=== PATIENT | male | born 1995 | race Caucasian/White ===

== ENCOUNTER 2019-03-31 10:26 | Inpatient (IN) | payer MEDICAID ==
[~2019-03-31] VITALS: Ht 170.2 cm; Wt 79.7 kg
[2019-03-31] MEDS ORDERED: OLAN2.5T3 PO (10:31)
[2019-03-31] MEDS ORDERED: BENZ0.5T44 PO (10:31)
[2019-03-31 11:11] LABS: APPEARANCE,URINE CLEAR (CLEAR); BILIRUBIN,URINE NEGATIVE (NEGATIVE); GLUCOSE, URINE (UA) NEGATIVE (NEGATIVE); KETONES,URINE NEGATIVE (NEGATIVE); LEUKOCYTE ESTERASE ,URINE NEGATIVE (NEGATIVE); NITRATE,URINE NEGATIVE (NEGATIVE); OCCULT BLOOD,URINE NEGATIVE (NEGATIVE); PH,URINE 6.5 (5.0-8.0); PROTEIN,URINE NEGATIVE (NEGATIVE); UROBILINOGEN,URINE 0.2 mg/dL (<=1.0)
[2019-03-31 11:17] LABS: AMPHET/METH SCREEN,URINE NEGATIVE (NEGATIVE); BARBITURATE SCREEN, URINE NEGATIVE (NEGATIVE); BENZODIAZEPINES SCREEN,URINE NEGATIVE (NEGATIVE); CANNABINOID SCREEN,URINE POSITIVE (NEGATIVE); COCAINE SCREEN,URINE NEGATIVE (NEGATIVE); METHADONE SCREEN, URINE NEGATIVE (NEGATIVE); OPIATE SCREEN,URINE NEGATIVE (NEGATIVE)
[2019-03-31 11:18] LABS: PHENCYCLIDINE SCREEN,URINE NEGATIVE (NEGATIVE)
[2019-03-31 12:28] LABS: BASOPHILS % (AUTO) 0.3 % (0.0-2.0); HEMOGLOBIN 13.8 g/dL (13.5-17.5); LYMPHOCYTES # (AUTO) 1.4 K/uL (1.0-4.8); LYMPHOCYTES % (AUTO) 25.8 % (22.0-44.0); MEAN CORPUSCULAR HEMOGLOBIN 29.3 pg (26.0-34.0); MEAN CORPUSCULAR HGB CONC 33.8 G/dL (31.0-37.0); MEAN CORPUSCULAR VOLUME 87 fL (80-100); MONOCYTES # (AUTO) 0.4 K/uL (0.1-1.0); MONOCYTES % (AUTO) 8.1 % (2.0-9.0); NEUTROPHILS # (AUTO) 3.4 K/uL (1.8-7.7); NEUTROPHILS % (AUTO) 64.8 % (40.0-70.0); PLATELET COUNT (AUTO) 200 K/uL (150-450); RED BLOOD CELL COUNT(AUTO) 4.72 MIL/uL (4.50-5.90); RED CELL DISTRIBUTION WIDTH 14.4 % (11.5-14.5)
[2019-03-31] MEDS ORDERED: 0.9% SODIUM CHLORIDE 10 ML SYRINGE IVP PRN (12:30)
[2019-03-31] MEDS ORDERED: ONDANSETRON HCL 4 MG/2 ML VIAL IVP PRN (12:30)
[2019-03-31] MEDS ORDERED: ACETAMINOPHEN 325 MG TABLET PO PRN (12:30)
[2019-03-31 12:36] LABS: ANION GAP 7 mmol/L (8-16); CARBON DIOXIDE 27 mmol/L (22-29); CHLORIDE 105 mmol/L (98-107); CREATININE 0.83 mg/dL (0.60-1.30); GLOMERULAR FILTR. RATE CALC > 60 mL/min (>60); GLUCOSE,RANDOM 106 mg/dL (70-110); POTASSIUM 4.1 mmol/L (3.5-5.1); SODIUM SERUM 139 mmol/L (136-145); UREA NITROGEN, BLOOD 12 mg/dL (7-18)
[2019-03-31 12:42] LABS: ALANINE AMINOTRANSFERASE 252 U/L (12-78); ALBUMIN 4.2 g/dL (3.4-5.0); ALKALINE PHOSPHATASE 96 U/L (46-116); ASPARTATE AMINOTRANSFERASE 83 U/L (15-37); BILIRUBIN,TOTAL 0.3 mg/dL (0.1-1.0); TOTAL PROTEIN, SERUM 8.3 g/dL (6.4-8.2)
[2019-03-31] MEDS ORDERED: ZOLPIDEM TARTRATE 10 MG TABLET PO PRN (13:15)
[2019-03-31 16:30] VITALS: BP 132/76
[2019-03-31] MEDS ORDERED: INFLUENZA VIRUS VACCINE QVS 2019-20 (3YR+)/PF 60 MCG/0.5 ML SYRINGE IM ONE (16:45)
[2019-03-31] MEDS: HALOPERIDOL 5 MG TABLET PO PRN (17:04)
[2019-03-31] MEDS: LORazepam 2 MG TABLET PO PRN (17:04)
[2019-04-01 06:09] VITALS: BP 127/56
[2019-04-01 08:15] VITALS: BP 110/68
[2019-04-01 10:07] LABS: ALANINE AMINOTRANSFERASE 245 U/L (12-78); ALBUMIN 3.7 g/dL (3.4-5.0); ALKALINE PHOSPHATASE 80 U/L (46-116); ANION GAP 8 mmol/L (8-16); ASPARTATE AMINOTRANSFERASE 76 U/L (15-37); BILIRUBIN,TOTAL 0.4 mg/dL (0.1-1.0); CALCIUM, TOTAL 8.8 mg/dL (8.8-10.5); CARBON DIOXIDE 27 mmol/L (22-29); CHLORIDE 104 mmol/L (98-107); CHOL/HDL RATIO 2.1 (4.2-7.3); CHOLESTEROL 107 mg/dL (131-200); CREATININE 0.72 mg/dL (0.60-1.30); GLOMERULAR FILTR. RATE CALC > 60 mL/min (>60); GLUCOSE,RANDOM 76 mg/dL (70-110); HDL CHOLESTEROL 51 mg/dL (40-60); LDL CHOL (CALC.) 46 mg/dL (0-130); POTASSIUM 4.1 mmol/L (3.5-5.1); SODIUM SERUM 139 mmol/L (136-145); TOTAL PROTEIN, SERUM 7.4 g/dL (6.4-8.2); TRIGLYCERIDES 50 mg/dL (15-150); UREA NITROGEN, BLOOD 14 mg/dL (7-18)
[2019-04-01] MEDS: HALOPERIDOL 5 MG TABLET PO PRN ×2 (10:34→16:03)
[2019-04-01] MEDS: LORazepam 2 MG TABLET PO PRN ×2 (10:34→16:03)
[2019-04-01] MEDS ORDERED: BENZOCAINE/MENTHOL LOZENGE MM PRN (14:45)
[2019-04-01] MEDS ORDERED: PETROLATUM,WHITE 28 GM JELLY TP PRN (14:45)
[2019-04-01] MEDS ORDERED: LOPERAMIDE HCL 2 MG CAPSULE PO PRN (14:45)
[2019-04-01] MEDS ORDERED: IBUPROFEN 600 MG TABLET PO PRN (14:45)
[2019-04-01] MEDS ORDERED: ALBUTEROL SULFATE HFA 90 MCG/PUFF 8 GM INHALER IH PRN (14:45)
[2019-04-01] MEDS ORDERED: MAGNESIUM HYDROXIDE SUSPENSION 30 ML UDCUP PO PRN (14:45)
[2019-04-01] MEDS ORDERED: MAG HYDROX/AL HYDROX/SIMETH ES 30 ML SUSPENSION UDCUP PO PRN (14:45)
[2019-04-01] MEDS ORDERED: DOCUSATE SODIUM 100 MG CAPSULE PO PRN (14:45)
[2019-04-01] MEDS ORDERED: CloNIDine HCL 0.1 MG TABLET PO PRN (14:45)
[2019-04-01] MEDS ORDERED: OMEPRAZOLE 20 MG CAPSULE PO PRN (14:45)
[2019-04-01] MEDS ORDERED: ONDANSETRON HCL 4 MG TABLET PO PRN (14:45)
[2019-04-01] MEDS ORDERED: BACITRACIN 28.4 GM OINTMENT TP PRN (14:45)
[2019-04-01] MEDS ORDERED: ACETAMINOPHEN 325 MG TABLET PO PRN (14:45)
[2019-04-01] MEDS: BENZTROPINE MESYLATE 0.5 MG TABLET PO SCH (16:03)
[2019-04-01 16:25] VITALS: BP 122/76
[2019-04-01] MEDS: OLANZapine 5 MG TABLET PO SCH (20:07)
[2019-04-02 06:20] VITALS: BP 122/73
[2019-04-02 08:13] VITALS: BP 150/82
[2019-04-02] MEDS: BENZTROPINE MESYLATE 0.5 MG TABLET PO SCH ×2 (09:12→17:37)
[2019-04-02 16:11] VITALS: BP 125/84
[2019-04-02] MEDS: OLANZapine 5 MG TABLET PO SCH (20:25)
[2019-04-03 06:14] VITALS: BP 108/66
[2019-04-03 08:00] VITALS: BP 143/76
[2019-04-03] MEDS: BENZTROPINE MESYLATE 0.5 MG TABLET PO SCH ×2 (10:02→16:07)
[2019-04-03] MEDS: HALOPERIDOL 5 MG TABLET PO PRN (10:02)
[2019-04-03] MEDS: LORazepam 2 MG TABLET PO PRN ×2 (10:02→16:07)
[2019-04-03 16:00] VITALS: BP 124/79
[2019-04-03] MEDS ORDERED: OLAN5TAB2 PO ×2 (17:28→17:29)
[2019-04-03] MEDS ORDERED: BENZ0.5T44 PO (17:29)
[2019-04-03] MEDS ORDERED: OLANZapine 5 MG TABLET PO SCH (21:00)
[2019-04-04] MEDS ORDERED: BENZTROPINE MESYLATE 0.5 MG TABLET PO SCH (09:00)
[2019-04-04] MEDS ORDERED: OLANZapine 5 MG TABLET PO SCH (09:00)
== END 2019-04-03 18:00 | disposition home or self-care (01) | DRG 750 ==
LOC: EMS 10:28 → B3A 14:54
PROVIDERS: ADMIT Psychiatry & Neurology Psychiatry; ATTEND Psychiatry & Neurology Psychiatry
DX: F20.0 Paranoid schizophrenia (principal); R45.851 Suicidal ideations; B19.20 Unspecified viral hepatitis C without hepatic coma; F10.10 Alcohol abuse, uncomplicated; F12.90 Cannabis use, unspecified, uncomplicated; F15.10 Other stimulant abuse, uncomplicated; F17.200 Nicotine dependence, unspecified, uncomplicated; G47.00 Insomnia, unspecified; F32.9 Major depressive disorder, single episode, unspecified; Z28.21 Immunization not carried out because of patient refusal; Z79.899 Other long term (current) drug therapy; Z71.51 Drug abuse counseling and surveillance of drug abuser; Z71.6 Tobacco abuse counseling
CPT/HCPCS: 80074; 90686; G0480